=== PATIENT | female | born 1975 | race Hispanic/Latino ===

== ENCOUNTER → 2019-01-19 | Outpatient (CLI) | payer OTHER ==
[~2019-01-19] MED LIST: DOCU-116 PO; IBUP-2077 PO; PREN1TAB26 PO
== END | disposition home or self-care (01) ==
LOC: RAH 11:54
PROVIDERS: ATTEND Physical Medicine & Rehabilitation
DX: M25.551 Pain in right hip (principal); M41.9 Scoliosis, unspecified
CPT/HCPCS: 72082; 73502

== ENCOUNTER → 2019-04-12 | Outpatient (CLI) | payer OTHER | END | disposition home or self-care (01) | LOC: RAH 10:36 | PROVIDERS: ATTEND Physical Medicine & Rehabilitation | DX: M47.22 Other spondylosis with radiculopathy, cervical region (principal); M48.02 Spinal stenosis, cervical region | CPT/HCPCS: 72141; 72146 ==

== ENCOUNTER → 2019-08-18 | Outpatient (CLI) | payer OTHER | END | disposition home or self-care (01) | LOC: RAH 11:04 | PROVIDERS: ATTEND Physical Medicine & Rehabilitation | DX: M54.16 Radiculopathy, lumbar region (principal) | CPT/HCPCS: 72148 ==

== ENCOUNTER → 2019-11-18 | Outpatient (CLI) | payer OTHER ==
[2019-11-18 09:15] LABS: BASOPHILS % (AUTO) 0.7 % (0.0-5.0); EOSINOPHILS % (AUTO) 1.8 % (0.0-8.0); HEMATOCRIT 39.3 % (36-48); LYMPHOCYTES % (AUTO) 30.9 % (21.0-51.0); MEAN CORPUSCULAR HEMOGLOBIN 29.7 pg (27.0-33.0); MEAN CORPUSCULAR HGB CONC 32.1 g/dL (32.0-36.0); MEAN CORPUSCULAR VOLUME 92.7 fL (79-99); MONOCYTES % (AUTO) 6.7 % (3.0-13.0); NEUTROPHILS % (AUTO) 59.2 % (40.0-77.0); PLATELET COUNT (AUTO) 261 K/uL (130-400); RED BLOOD CELL COUNT(AUTO) 4.24 MIL/uL (4.00-5.50); RED CELL DISTRIBUTION WIDTH 12.6 % (11.0-15.5); WHITE BLOOD COUNT (AUTO) 4.5 K/uL (4.8-10.8)
[2019-11-18 09:40] LABS: BILIRUBIN,TOTAL 0.4 mg/dL (0.2-1.0); CREATININE 0.7 mg/dL (0.5-1.5); POTASSIUM 4.3 mmol/L (3.5-5.1); THYROID STIMULATING HORMONE 1.92 uIU/mL (0.36-3.74); TOTAL PROTEIN, SERUM 7.4 g/dL (6.0-8.3)
== END | disposition home or self-care (01) ==
LOC: LAB 08:38
PROVIDERS: ATTEND Obstetrics & Gynecology
DX: Z00.00 Encounter for general adult medical examination without abnormal findings (principal)
CPT/HCPCS: 36415; 80053; 80061; 84443; 85025

== ENCOUNTER → 2020-10-11 | Outpatient (CLI) | payer OTHER | END | disposition home or self-care (01) | LOC: LAB 11:59 | PROVIDERS: ATTEND Internal Medicine Cardiovascular Disease | DX: Z20.828 Contact with and (suspected) exposure to other viral communicable diseases (principal) | CPT/HCPCS: 87426; C9803; U0003 ==

== ENCOUNTER → 2020-10-20 | Outpatient (CLI) | payer OTHER ==
[2020-10-20 09:05] LABS: BASOPHILS % (AUTO) 0.5 % (0.0-5.0); HEMATOCRIT 39.6 % (36-48); LYMPHOCYTES % (AUTO) 27.6 % (21.0-51.0); MEAN CORPUSCULAR HEMOGLOBIN 30.9 pg (27.0-33.0); MEAN CORPUSCULAR HGB CONC 33.6 g/dL (32.0-36.0); MEAN CORPUSCULAR VOLUME 91.9 fL (79-99); NEUTROPHILS % (AUTO) 62.2 % (40.0-77.0); PLATELET COUNT (AUTO) 270 K/uL (130-400); RED BLOOD CELL COUNT(AUTO) 4.31 MIL/uL (4.00-5.50); RED CELL DISTRIBUTION WIDTH 12.1 % (11.0-15.5); WHITE BLOOD COUNT (AUTO) 5.5 K/uL (4.8-10.8)
[2020-10-20 09:24] LABS: HEMOGLOBIN A1C 5.4 % (4.0-6.0)
[2020-10-20 09:28] LABS: ALBUMIN 3.7 g/dL (3.5-5.0); BILIRUBIN,TOTAL 0.3 mg/dL (0.2-1.0); CREATININE 0.8 mg/dL (0.5-1.5); POTASSIUM 4.3 mmol/L (3.5-5.1); THYROID STIMULATING HORMONE 2.06 uIU/mL (0.36-3.74); TOTAL PROTEIN, SERUM 7.5 g/dL (6.0-8.3)
== END | disposition home or self-care (01) ==
LOC: LAB 08:22
PROVIDERS: ATTEND Obstetrics & Gynecology
DX: Z00.00 Encounter for general adult medical examination without abnormal findings (principal)
CPT/HCPCS: 36415; 80053; 80061; 82306; 83036; 84443; 85025

== ENCOUNTER → 2021-05-17 | Outpatient (CLI) | payer OTHER | END | disposition home or self-care (01) | LOC: LAB 11:28 | PROVIDERS: ATTEND Internal Medicine Cardiovascular Disease | DX: Z20.822 Contact with and (suspected) exposure to COVID-19 (principal) | CPT/HCPCS: 87635; 87804 ×2; C9803 ==

== ENCOUNTER → 2022-06-12 | Outpatient (CLI) | payer OTHER | END | disposition home or self-care (01) | LOC: ICE 10:04 | PROVIDERS: ATTEND Hospitalist | DX: U07.1 COVID-19 (principal) | CPT/HCPCS: 87426 ==

== ENCOUNTER → 2022-09-10 | Outpatient (CLI) | payer OTHER | END | disposition home or self-care (01) | LOC: RAH 14:55 | PROVIDERS: ATTEND Obstetrics & Gynecology | DX: Z12.31 Encounter for screening mammogram for malignant neoplasm of breast (principal) | CPT/HCPCS: 77067 ==

== ENCOUNTER → 2022-10-03 | Outpatient (CLI) | payer OTHER | END | disposition home or self-care (01) | LOC: RAH 11:00 | PROVIDERS: ATTEND Obstetrics & Gynecology | DX: R92.8 Other abnormal and inconclusive findings on diagnostic imaging of breast (principal); N63.10 Unspecified lump in the right breast, unspecified quadrant; N63.20 Unspecified lump in the left breast, unspecified quadrant ==

== ENCOUNTER → 2024-04-29 | Outpatient (CLI) | payer OTHER | END | disposition home or self-care (01) | LOC: RAH 10:00 | PROVIDERS: ATTEND Physician Assistant Medical | DX: Z12.31 Encounter for screening mammogram for malignant neoplasm of breast (principal); R92.333 Mammographic heterogeneous density, bilateral breasts; N63.20 Unspecified lump in the left breast, unspecified quadrant; N63.10 Unspecified lump in the right breast, unspecified quadrant; Z98.82 Breast implant status | CPT/HCPCS: 77067 ==

== ENCOUNTER → 2025-07-05 | Outpatient (CLI) | payer OTHER | END | disposition home or self-care (01) | LOC: RAH 11:25 | PROVIDERS: ATTEND Obstetrics & Gynecology | DX: Z12.31 Encounter for screening mammogram for malignant neoplasm of breast (principal) | CPT/HCPCS: 77067 ==